=== PATIENT | female | born 1975 | race Caucasian/White ===

== ENCOUNTER 2020-12-03 08:32 | Outpatient (REF) | payer MEDICAID, SELFPAY ==
--- NOTE | ~2020-12-03 | XR_ITS ---
EXAMINATION: XR KNEE, BILATERAL CLINICAL INFORMATION: Bilateral knee pain COMPARISON: None TECHNIQUE: 4 views each knee. FINDINGS: RIGHT KNEE: There is no visible acute fracture, dislocation or subluxation. No bony erosive changes. The tricompartment joint space is normal. There is anterior superior and inferior patella enthesophytes. No abnormal joint effusion. There is medial articulating surface patellar spurring. LEFT KNEE: There is no visible acute fracture, dislocation or subluxation. No bony erosive changes seen. The tricompartment joint space is normal. There is anterior inferior and mid patellar enthesophytes. No abnormal joint effusion seen. XR/XR knee LT 4V IMPRESSION: Anterior superior and prepatellar enthesophytes. No acute fracture or dislocation right knee. No loose bodies. Mild anterior infrapatellar enthesophytes. No visible fracture or dislocation left knee.
--- NOTE | ~2020-12-03 | XR_ITS ---
EXAMINATION: XR KNEE, BILATERAL CLINICAL INFORMATION: Bilateral knee pain COMPARISON: None TECHNIQUE: 4 views each knee. FINDINGS: RIGHT KNEE: There is no visible acute fracture, dislocation or subluxation. No bony erosive changes. The tricompartment joint space is normal. There is anterior superior and inferior patella enthesophytes. No abnormal joint effusion. There is medial articulating surface patellar spurring. LEFT KNEE: There is no visible acute fracture, dislocation or subluxation. No bony erosive changes seen. The tricompartment joint space is normal. There is anterior inferior and mid patellar enthesophytes. No abnormal joint effusion seen. XR/XR knee RT 4V IMPRESSION: Anterior superior and prepatellar enthesophytes. No acute fracture or dislocation right knee. No loose bodies. Mild anterior infrapatellar enthesophytes. No visible fracture or dislocation left knee.
== END 2020-12-03 08:33 | disposition home or self-care (01) ==
LOC: HO.XRAY 08:32
PROVIDERS: PCP Internal Medicine; Visit Provider Internal Medicine
DX: M25.561 Pain in right knee (principal); M25.562 Pain in left knee
CPT/HCPCS: 73564

== ENCOUNTER → 2020-12-12 13:18 | Outpatient (BNVA) | payer MEDICAID, SELFPAY | PROVIDERS: PCP Internal Medicine; Visit Provider Physician Assistant | DX: M17.11 Unilateral primary osteoarthritis, right knee (principal) | CPT/HCPCS: 99202 ==

== ENCOUNTER 2021-01-09 14:01 | Outpatient (REF) | payer MEDICAID, SELFPAY ==
--- NOTE | ~2021-01-09 | MM_ITS ---
EXAMINATION: MM DIAGNOSTIC DIGITAL BREAST TOMOSYNTHESIS, BILATERAL US DIAGNOSTIC ULTRASOUND BREAST, RIGHT CLINICAL INFORMATION: Due for yearly. Palpable fullness upper outer right breast, near area prior probable benign cyst. No known family history breast cancer. TC score 12%. COMPARISON: Mammography: 04/10/2018, bilateral targeted ultrasound 04/10/2018, right targeted ultrasound 10/11/2018. TECHNIQUE: Digital breast tomosynthesis is performed in both the craniocaudal and mediolateral oblique views along with computer-aided detection (CAD). Synthesized 2D images are generated from the tomosynthesis. Ultrasound right breast is targeted to the area of clinical concern upper outer quadrant. Grayscale imaging and color Doppler are performed without and with harmonics. FINDINGS: There are scattered areas of fibroglandular density (ACR BI-RADS breast composition Category b). Parenchymal pattern is similar to prior exam. There are scattered bilateral stable parenchymal asymmetries. There is no developing density or interval mass or architectural abnormality or abnormal calcifications. Left breast has small stable nodule posterior 12:00 position corresponding to cyst on prior targeted ultrasound 2018. Right breast parenchymal asymmetry in area of palpable concern is decreased from prior mammography 2018. Ultrasound right breast demonstrates a solitary cyst 10:00 position 7 cm from nipple measuring 0.7 x 0.6 cm and corresponding to the area of clinical concern. Margins are circumscribed and there is increased through-transmission of sound. No solid component or color flow. The previously noted multiseptated cyst in this area on prior ultrasound 2019 and measuring 2.3 cm is no longer demonstrated. This is consistent with the decrease parenchymal asymmetry on mammography. There is no solid mass or architectural abnormality. Results are discussed with the patient at time of visit. MM/MM tomosynthesis diagnostic BI IMPRESSION: 1. No mammographic evidence of malignancy. 2. Small simple cyst at site of palpable concern upper outer right breast, 0.7 cm. The previously described multiseptated cyst upper outer right breast is no longer demonstrated. ASSESSMENT: BI-RADS 2: Benign RECOMMENDATION: Routine annual mammography screening. This patient's information was entered into a reminder system with a target due date for their next mammogram.
== END 2021-01-09 14:02 | disposition home or self-care (01) ==
LOC: HO.MAMMO 14:01
PROVIDERS: PCP Internal Medicine; Visit Provider Advanced Practice Midwife
DX: N63.11 Unspecified lump in the right breast, upper outer quadrant (principal)
CPT/HCPCS: 76642; 77062; 77066

== ENCOUNTER 2022-01-11 16:16 | Outpatient (REF) | payer MEDICAID, SELFPAY ==
--- NOTE | ~2022-01-11 | MM_ITS ---
EXAMINATION: MM SCREENING DIGITAL BREAST TOMOSYNTHESIS, BILATERAL CLINICAL INFORMATION: Screening. Asymptomatic. The lifetime risk of breast cancer based on the Tyrer-Cuzick Model is 10%. COMPARISON: Mammography: 01/09/2021, 04/10/2018; ultrasound right breast 01/09/2021, 01/08/2019, bilateral breast ultrasound 04/10/2018 TECHNIQUE: Digital breast tomosynthesis is performed in both the craniocaudal and mediolateral oblique views along with computer-aided detection (CAD). Synthesized 2D images are generated from the tomosynthesis. FINDINGS: There are scattered areas of fibroglandular density (ACR BI-RADS breast composition Category b). Parenchymal pattern is similar to prior exams and there is no interval significant mass or architectural abnormality or developing density. Scattered minor asymmetries are stable. There are no abnormal calcifications. The axilla and skin contours are unremarkable. MM/MM tomosynthesis screening BI IMPRESSION: No mammographic evidence of malignancy. ASSESSMENT: BI-RADS 2: Benign RECOMMENDATION: Routine annual mammography screening. This patient's information was entered into a reminder system with a target due date for their next mammogram.
== END 2022-01-11 16:17 | disposition home or self-care (01) ==
LOC: HO.MAMMO 16:16
PROVIDERS: Visit Provider Internal Medicine
DX: Z12.31 Encounter for screening mammogram for malignant neoplasm of breast (principal)
CPT/HCPCS: 77063; 77067